=== PATIENT | male | born 1995 | race Caucasian/White ===

== ENCOUNTER 2024-10-09 05:12 | Emergency (ER) | payer BC, SELFPAY ==
--- NOTE | ~2024-10-09 | XR_ITS ---
EXAMINATION: XR toe 5th RT min 2V DATE: 10/09/2024 06:25 INDICATION: Possible fracture of the right fifth toe TECHNIQUE: Dorsal plantar, lateral and 2 oblique views of the right fifth toe were obtained. COMPARISON: None FINDINGS: Bone alignment is normal. No fracture. There is relative widening of the fifth distal interphalangeal joint suggesting a possible joint effusion. IMPRESSION: Widening of the fifth distal interphalangeal joint suggesting the presence of a nonspecific joint eff usion without evident fracture. Reviewed, dictated and finalized at location A. IMPRESSION: Widening of the fifth distal interphalangeal joint suggesting the presence of a nonspecific joint effusion without evident fracture.
[2024-10-09 05:25] VITALS: BP 122/61; PULSE 70; RESP 17; TEMP 36.8; O2SAT 100
--- OUTSIDE RECORDS SUMMARY | 2024-10-09 06:29 | XMS_ITS | Patient Health Record ---
Author Organization [facility] Address [address] [place], [place] [id number] Care Team Providers Care Diabetes Territory Manager Name Role Phone JOAO BACON Unavailable [phone] Kamla Alejandro Unavailable Unavailable Reason For Referral No Information Plan Of Treatment No Information Insurance Providers Payer Name Payer Address Payer Phone Subscriber Number Group Number Insured Name Patient Relationship to Insured Coverage Start Date Coverage End Date [facility] [address] [place], [place] [id number] [place] [employer] Child - Insured has Financial Responsibility
--- OUTSIDE RECORDS SUMMARY | 2024-10-09 06:29 | XMS_ITS | Continuity of Care Document ---
Author Organization [facility] Address [address] [place] [address] Phone Care Team Providers Care Presales Consultant Name Role Phone Joel Starr MD Unavailable Unavailable Allergies, Adverse Reactions, Alerts Substance Reaction Status Criticality No Known Drug Allergies Active No I nformation Medications Medication Instructions Dosage Effective Dates (start - stop) Status Comments No Active Medications OPHTHALMIC As Directed - Active Procedures Procedure Date Offic Outpt E M [facility] 3 Advance Directives Directive Yes / No Effective Date File Name No Information Encounters Encounter Description Practice Location Reason(s) For Visit Diagnoses Date Provider Providers Copied on Encounter Offic Outpt [facility], [address] [facility], [place], [place], [id number], tel:[phone] [facility] Conjunctivitis due to adenovirusKeratocon junct sicca, not specified as Sjogren's, bilateral 3 Matty Maldonado. [facility], [facility] [address], [place], [place], [id number] , [place]. tel:[phone] Referring Provider: Joel Starr MD S, [address] [facility] [address], [place], [address] . tel:[phone] Family History Family Member Type Diagnosis Age At Onset Father Problem unknown cornea disorder - [address]s Payers Payer name Insurance type Covered alliance party ID Authoriza tion(s) [facility] [id number] Social History Type Description Quantity Date Captured Comments Alcohol Use Details Unknown Caffeine Use Details Unknown Tobacco Use Status Never smoked tobacco 2022 Smoking Status Never smoker Sex Male Chief Complaint And Reason For Visit No Information Reason For Referral Reason For Referral No Information History Of Present Illness Encounter Date Complaint History Of Prese nt Illness No Information Functional Status Date Functional Assessmen t No Information Instructions Date Instruction Additional Lulur nanette Education Material Provided Assessments Type Assessment Date No Information Patient Care Teams Name Effective Dates (start - stop) Status Members No Information
--- NOTE | 2024-10-09 06:36 | ED.GENADULT ---
HPI - General Adult General Chief complaint: Unspecified Stated complaint: Broken Right 5th Toe Time Seen by Provider: 10/09/24 05:16 History of Present Illness HPI narrative: Patient is a 29-year-old male who presents emergency department this evening complaining of right 5th toe injury. States that he accidentally kicked a couch yesterday. Is having right toe pain since then states that it does hurt to walk on it. Was concerned that he broke his toe. Denies any additional injuries or concerns at this time. Related Data Allergies Allergy/AdvReac Type Severity Reaction Status Date / Time walnut Allergy Difficulty Verified 10/09/24 05:14 Swallowing Review of Systems Review of Systems: All systems are reviewed and are negative unless stated otherwise in the HPI. Exam Narrative: General: Alert, awake, afebrile, in no acute distress. HEENT: PERRL, no rhinorrhea, no post nasal drip, oropharynx clear. Neck: Trachea midline, no JVD, no lymphadenopathy. Cardiovascular: Regular rate and rhythm, no murmurs, rubs or gallops, no peripheral edema. Respiratory: Clear to auscultation bilaterally, no tachypnea, no wheezing, no rhonchi, no rubs, no respiratory distress. Abdomen: Soft, nontender, nondistended, no rebound, no guarding, no peritoneal signs. Musculoskeletal: Moderate swelling to the right 5th toe otherwise no injury to the foot, no tenderness to palpation over the midfoot or the base of the 5th metatarsal. Skin: No rashes or petechia, no signs of infection. Psychiatric: Alert and oriented, normal behavior and judgment for situation. Neurological: Alert and oriented to person, place, and time. Follows all commands. No focal deficits, speech is clear and fluent. Course Vital Signs Vital signs: Vital Signs Temperature 98.3 F 10/09/24 05:25 Pulse Rate 70 10/09/24 05:25 Respiratory Rate 17 10/09/24 05:25 Blood Pressure 122/61 10/09/24 05:25 Pulse Oximetry 100 10/09/24 05:25 Oxygen Delivery Room Air 10/09/24 05:25 Temperature 98.3 F 10/09/24 05:25 Pulse Rate 70 10/09/24 05:25 Respiratory Rate 17 10/09/24 05:25 Blood Pressure 122/61 10/09/24 05:25 Pulse Oximetry 100 10/09/24 05:25 Oxygen Delivery Room Air 10/09/24 05:25 Medical Decision Making MDM Narrative Medical decision making narrative: The patient was evaluated by myself in the emergency department. History is obtained from patient who is an independent historian and physical exam was performed. External medical records were reviewed at this time. Patient was administered 600 mg oral ibuprofen. Imaging studies obtained included right toe x-rays which was independently interpreted by me revealing no acute process, which is pending final radiology interpretation. Patient was informed of these findings at bedside. Patient's right 5th toe was linus-taped to the 4th toe and wrapped in Reza bandage for comfort. Differential diagnosis considerations include sprain versus fracture versus dislocation. Comorbidities impacting this visit include none. I have evaluated and discussed social determinants of health with the patient that could potentially impact subsequent diagnosis and treatment plans. On repeat assessment of the patient, reevaluation revealed that the patient is doing well and is in no acute distress. Patient symptoms have improved since he arrived to our emergency department. Repeat vital signs were all reviewed and noted to be stable. Differential diagnosis and treatment plan were discussed with the patient at bedside. Patient agrees with discussion and after shared medical decision making agrees with discharge. All questions were answered to the patient's satisfaction. Patient will follow up with his PCP in 3-5 days. Patient was provided with strict return precautions and instructed to return to the emergency department if any new or worsening symptoms develop. The patient was discharged in stable condition. Vital Signs Vital Signs: Vital Signs Temperature 98.3 F 10/09/24 05:25 Pulse Rate 70 10/09/24 05:25 Respiratory Rate 17 10/09/24 05:25 Blood Pressure 122/61 10/09/24 05:25 Pulse Oximetry 100 10/09/24 05:25 Oxygen Delivery Room Air 10/09/24 05:25 Temperature 98.3 F 10/09/24 05:25 Pulse Rate 70 10/09/24 05:25 Respiratory Rate 17 10/09/24 05:25 Blood Pressure 122/61 10/09/24 05:25 Pulse Oximetry 100 10/09/24 05:25 Oxygen Delivery Room Air 10/09/24 05:25 Discharge Plan Discharge Clinical Impression: Sprain of fifth toe of right foot Patient Disposition: Home Condition: Improved Instructions: Antibiotic Form Additional Instructions: Please follow-up with your family doctor within the next 3-5 days. Return to emergency department if any new or worsening symptoms develop. Patient Language: Trinidadian Follow-up/Referrals: Justin Cullen MD [Physician] - 3 Days UNKNOWN,DOCTOR [Primary Care Provider] - Stand Alone Forms: Work/School Release IP Time of Disposition: 06:37
[2024-10-09] MEDS: IBUPROFEN 600 MG TABLET PO (06:42)
[2024-10-09 06:45] VITALS: RESP 16; O2SAT 99
[2024-10-09 06:46] VITALS: BP 112/79; PULSE 87; RESP 16; O2SAT 98
[2024-10-09 06:47] VITALS: BP 112/79; PULSE 87; RESP 16; O2SAT 98
== END 2024-10-09 06:50 | disposition home or self-care (01) ==
PROVIDERS: Emergency Provider Emergency Medicine
DX: S93.504A Unspecified sprain of right lesser toe(s), initial encounter (principal); W22.03XA Walked into furniture, initial encounter
CPT/HCPCS: 73660; 99283; A9270